=== PATIENT | female | born 1995 | race Caucasian/White ===

== ENCOUNTER 2017-10-31 15:51 | Emergency (ER) | payer OTHER ==
[~2017-10-31] VITALS: Ht 172.7 cm; Wt 63.6 kg
[2017-10-31 15:52] VITALS: TEMP 99.9
[2017-10-31] MEDS ORDERED: CRYSELLE 30 MCG1 TAB PO (16:20)
[2017-10-31 16:23] LABS: BASO % 0.4 % (0.0-2.0); EOS % 0.4 % (0-4.0); GRAN % 67.4 % (42.2-75.2); HEMATOCRIT 39.7 % (37.0-47.0); HEMOGLOBIN 13.7 g/dl (12.5-16.0); LYMPH # 1.9 (1.2-3.4); LYMPH % 25.2 % (20.0-51.0); MEAN CELL VOLUME 95 fl (80.0-100.0); MEAN CORPUSCULAR HEMOGLOBIN 33 pg (27.0-31.0); MEAN CORPUSCULAR HGB CONC 35 g/dl (33.0-37.0); MEAN PLATELET VOLUME 10.1 fl (7.4-10.4); MONO # 0.5 (0.1-0.6); MONO % 6.3 % (1.7-9.3); PLATELET COUNT 218 K/mm3 (130-400); REDCELL DISTRIBUTION WIDTH-CV 11.7 % (11.5-14.5)
[2017-10-31 16:32] LABS: ALBUMIN 4.4 gm/dL (3.5-5.0); BILIRUBIN,TOTAL 1.4 mg/dL (0.0-1.0); CALCIUM 9.3 mg/dL (8.4-10.2); CREATININE, serum 0.74 mg/dL (0.52-1.25); POTASSIUM 3.9 mmol/L (3.4-5.0); TOTAL PROTEIN 7.5 gm/dL (6.4-8.2)
[2017-10-31 17:05] LABS: COLLECTION METHOD CLEAN CATCH
[2017-10-31 17:15] LABS: MUCOUS Present /lpf; URINE BACTERIA None Seen /hpf; URINE RBC 0-2 /hpf
[2017-10-31 17:24] LABS: SQUAMOUS EPITHELIAL None Seen /hpf
[2017-10-31 17:27] LABS: URINE APPEARANCE Clear; URINE COLOR Yellow
[2017-10-31 17:28] LABS: PH 5 (5-8); URINE BILIRUBIN Negative (NEGATIVE); URINE BLOOD Negative (NEGATIVE); URINE GLUCOSE Negative (NEGATIVE); URINE KETONE Trace (NEGATIVE); URINE LEUKOCYTE ESTERASE Negative (NEGATIVE); URINE NITRATE Negative (NEGATIVE); URINE PROTEIN(semi-quant) Negative (NEGATIVE); URINE UROBILINOGEN Negative (NEGATIVE)
[2017-10-31] MEDS ORDERED: NORCO 325 MG-51 TAB PO (18:26)
[2017-10-31 18:40] VITALS: BP 114/76; PULSE 86
== END 2017-10-31 18:40 | disposition home or self-care (01) ==
LOC: COL.ER 15:51
PROVIDERS: Family Medicine
DX: S20.212A Contusion of left front wall of thorax, initial encounter (principal); V92.03XA Drowning and submersion due to fall off other powered watercraft, initial encounter; Y93.I9 Activity, other involving external motion
CPT/HCPCS: J1885; J2270; J7030